=== PATIENT | female | born 1975 | race Caucasian/White ===

== ENCOUNTER 2021-03-30 09:00 | Emergency (ER) | payer OTHER ==
[2021-03-30 09:53] LABS: Absolute Lymphocytes (CBC) 1.7 K/uL (0.7-4.9); Basophils % 0.1 % (0-1.3); Hematocrit 42.2 % (36.0-45.0); Lymphocytes % 13.8 % (15.3-44.8); RBC Red Blood Cell Count 4.63 M/uL (3.86-4.86)
[2021-03-30] MEDS ORDERED: ONDANSETRON 4 MG/2 ML VIAL ONE (09:53)
[2021-03-30] MEDS ORDERED: MORPHINE 4 MG/ML SYR ONE ×2 (09:53→13:25)
[2021-03-30] MEDS ORDERED: NA CHLORIDE 0.9% 0 ML ONE (09:53)
[2021-03-30 11:19] LABS: SARS-COV-2 RT PCR NEGATIVE (NEGATIVE)
[2021-03-30 11:25] LABS: Albumin 3.6 g/dL (3.4-5.0); Bilirubin Direct 0.1 mg/dL (0-0.2); Bilirubin Total 0.5 mg/dL (0.2-1.0); Potassium 3.8 mmol/L (3.5-5.1); Protein, Total 6.9 g/dL (6.4-8.2)
--- NOTE | 2021-03-30 12:06 | RAD REPORT ---
EXAM DESCRIPTION: CT - Abdomen Pelvis W Contrast - 03/30/2021 11:41 am CLINICAL HISTORY: Abdominal pain COMPARISON: none. TECHNIQUE: Computed axial tomography of the abdomen pelvis was obtained. 100 cc Isovue-300 was admin istered intravenously. Oral contrast was not requested which limits evaluation of bowel. All CT scans are performed using dose optimization technique as appropriate and may include automated exposure control or mA/KV adjustment according to patient size. FINDINGS: The liver, spleen, pancreas, adrenal and kidneys appear unremarkable. Marked thickening of the wall of the descending colon with stranding within adjacent fat compatible w ith colitis. Pneumatosis intestinalis is not noted. . A small amount of ascites IMPRESSION: Marked left-sided colitis
[2021-03-30] MEDS ORDERED: CIPROFLOXACIN 400mg IV 0 MG/0 ML BAG IV ONE (12:24)
[2021-03-30] MEDS ORDERED: METRONIDAZOLE 500mg IVPB 500 MG/100 ML BAG IV ONE (12:24)
[2021-03-30] MEDS ORDERED: CIPROFLOXACIN HCL 500 MG TAB ONE (12:25)
--- NOTE | 2021-03-30 12:35 | EDPHYS ---
Physician Documentation [facility] Name: Melissa Jimenes Age: 46 yrs Sex: Female : 1975 Arrival Date: 03/30/2021 Time: 09:04 Bed 10 Private MD: ED Physician Joe Baldwin HPI: 03/30 09:39 This 46 yrs old Female presents to ER via Ambulatory with complaints of Abdominal Pain. pm1 09:39 The patient presents with abdominal pain in the left lower quadrant, Suprapubic area. pm1 Onset: The symptoms/episode began/occurred yesterday. The symptoms do not radiate. Associated signs and symptoms: Pertinent positives: diarrhea, Pertinent negatives: nausea and vomiting. The symptoms are described as sharp. Modifying factors: The symptoms are alleviated by nothing, the symptoms are aggravated by nothing. Severity of pain: in the emergency department the pain is actually worse. The patient has not experienced similar symptoms in the past. The patient has not recently seen a physician. Historical: - Allergies: 09:32 No Known Allergies; aa5 - Home Meds: 09:32 None [Active]; aa5 - PMHx: 09:32 None; aa5 - PSHx: 09:32 hysterectomy; aa5 - Immunization history:: Client reports receiving the 2nd dose of the Covid vaccine. - Social history:: Smoking status: Patient reports the use of cigarette tobacco products, smokes one-half pack cigarettes per day. ROS: 09:39 Constitutional: Negative for fever, chills, and weight loss, Cardiovascular: Negative pm1 for chest pain, palpitations, and edema, Respiratory: Negative for shortness of breath, cough, wheezing, and pleuritic chest pain. 09:39 : Negative for injury, bleeding, discharge, and swelling, MS/Extremity: Negative for injury and deformity, Skin: Negative for injury, rash, and discoloration, Neuro: Negative for headache, weakness, numbness, tingling, and seizure. 09:39 Abdomen/GI: Positive for abdominal pain, diarrhea, Negative for nausea and vomiting, constipation. 09:39 All other systems are negative. Exam: 09:39 Constitutional: This is a well developed, well nourished patient who is awake, alert, pm1 and in no acute distress. Head/Face: Normocephalic, atraumatic. 09:39 Back: No spinal tenderness. No costovertebral tenderness. Full range of motion. Skin: Warm, dry with normal turgor. Normal color with no rashes, no lesions, and no evidence of cellulitis. MS/ Extremity: Pulses equal, no cyanosis. Neurovascular intact. Full, normal range of motion. 09:39 Cardiovascular: Exam negative for acute changes, Rate: normal, Rhythm: regular, Pulses: no pulse deficits are appreciated, Heart sounds: normal. 09:39 Respiratory: Exam negative for acute changes, respiratory distress, shortness of breath, Breath sounds: are clear throughout. 09:39 Abdomen/GI: Inspection: abdomen appears normal, Palpation: soft, in all quadrants, mild abdominal tenderness, in the suprapubic area and left lower quadrant. 09:39 Neuro: Exam negative for acute changes, Orientation: is normal, Mentation: is normal, Motor: is normal, moves all fours. Vital Signs: 09:30 BP 118 / 77; Pulse 75; Resp 16; Pulse Ox 100% on R/A; kj1 09:34 BP 121 / 79; Pulse 64; Resp 16 S; Temp 98.0(TE); Pulse Ox 100% on R/A; Weight 68.04 kg aa5 (R); Height 5 ft. 6 in. (167.64 cm) (R); 11:39 Pulse 65; Resp 15; Pulse Ox 99% on R/A; ss 09:34 Body Mass Index 24.21 (68.04 kg, 167.64 cm) aa5 MDM: 09:39 Patient medically screened. pm1 12:30 Data reviewed: vital signs. Data interpreted: Pulse oximetry: on room air is 99 %. pm1 Interpretation: normal. 12:30 Counseling: I had a detailed discussion with the patient and/or guardian regarding: the pm1 historical points, exam findings, and any diagnostic results supporting the discharge/admit diagnosis, lab results, radiology results. 12:30 ED course: Patient offered admission. Patient would like to go home. She is not pm1 vomiting and would be able to take her medications. Educated on return precautions for reevaluation and admission. 03/30 09:36 Order name: Basic Metabolic Panel; Complete Time: 11:39 iw 03/30 09:36 Order name: CBC with Diff; Complete Time: 10:50 iw 03/30 09:36 Order name: Hepatic Function; Complete Time: 11:39 iw 03/30 09:36 Order name: Lipase; Complete Time: 11:39 iw 03/30 09:56 Order name: COVID-19/FLU A+B (Document "Date of Onset" if Symptomatic); Complete Time: pm1 11:20 03/30 11:17 Order name: Urine Microscopic Only pm1 03/30 09:54 Order name: CT Abd/Pelvis - IV Contrast Only; Complete Time: 12:13 pm1 03/30 12:45 Order name: Urine Dipstick-Ancillary; Complete Time: 12:48 EDMS 03/30 09:36 Order name: IV Saline Lock; Complete Time: 10:02 iw 03/30 09:36 Order name: Labs collected and sent; Complete Time: 10:02 iw 03/30 11:17 Order name: Urine Dipstick-Ancillary (obtain specimen); Complete Time: 12:48 pm1 Administered Medications: 10:01 Drug: NS 0.9% 1000 ml Route: IV; Rate: 1000 ml; Site: left antecubital; iw 11:00 Follow up: IV Status: Completed infusion iw 10:01 Drug: morphine 4 mg Route: IVP; Site: left antecubital; iw 10:15 Follow up: Response: No adverse reaction iw 10:01 Drug: Zofran (Ondansetron) 4 mg Route: IVP; Site: left antecubital; iw 10:15 Follow up: Response: No adverse reaction iw 12:46 Drug: Flagyl (metroNIDAZOLE) 500 mg Volume: 100 ml; Route: IVPB; Rate: 200 ml/hr; ld1 Infused Over: 30 mins; Site: left antecubital; 13:32 Follow up: Response: No adverse reaction; IV Status: Completed infusion; IV Intake: ld1 100ml 12:47 Drug: Cipro (ciprofloxacin) 500 mg Route: PO; ld1 13:32 Follow up: Response: No adverse reaction ld1 12:52 Not Given (Patient Refused): NS 0.9% 1000 ml IV at 1000 ml once ld1 13:32 Drug: morphine 4 mg Route: IVP; Site: left antecubital; ld1 13:32 Follow up: Response: No adverse reaction ld1 13:32 Drug: Bentyl (dicyclomine) 20 mg Route: PO; ld1 13:32 Follow up: Response: No adverse reaction ld1 Disposition: 14:52 Co-signature as Attending Physician, Joe Baldwin MD I agree with the assessment and kdr plan of care. Disposition Summary: 03/30/21 12:34 Discharge Ordered Location: Home pm1 Problem: new pm1 Symptoms: have improved pm1 Condition: Stable pm1 Diagnosis - Left sided colitis pm1 Followup: pm1 - With: Emergency Department - When: As needed - Reason: Worsening of condition Followup: pm1 - With: Private Physician - When: 2 - 3 days - Reason: Recheck today's complaints, Continuance of care, Re-evaluation by your physician Discharge Instructions: - Discharge Summary Sheet pm1 - Colitis pm1 Forms: - Medication Reconciliation Form pm1 - Thank You Letter pm1 - Antibiotic Education pm1 - Prescription Opioid Use pm1 Prescriptions: - Flagyl 500 mg Oral Tablet - take 1 tablet by ORAL route every 8 hours for 10 days; 30 tablet; Refills: 0, pm1 Product Selection Permitted - Cipro 500 mg Oral Tablet - take 1 tablet by ORAL route every 12 hours for 10 days; 20 tablet; Refills: 0, pm1 Product Selection Permitted - dicyclomine 20 mg Oral Tablet - take 1 tablet by ORAL route every 6 hours As needed; 20 tablet; Refills: 0, pm1 Product Selection Permitted Signatures: Dispatcher [employer] Joe Yoo MD MD kdr Mari Rivera RN RN iw Sapphire Christie RN RN aa5 Adebayo Elias NP SENIOR PRODUCT ANALYST pm1 Lesa Willis RN RN ld1
--- NOTE | 2021-03-30 12:35 | ER ---
Nurse's Notes [facility] Name: Melissa Jimenes Age: 46 yrs Sex: Female : 1975 Arrival Date: 03/30/2021 Time: 09:04 Bed 10 Private MD: Diagnosis: Left sided colitis Presentation: 03/30 09:34 Chief complaint: Patient states: lower abd cramping and diarrhea since last night. aa5 Denies vomiting. Coronavirus screen: diarrhea. Ebola Screen: No symptoms or risks identified at this time. Initial Sepsis Screen: Does the patient meet any 2 criteria? No. Patient's initial sepsis screen is negative. Does the patient have a suspected source of infection? No. Patient's initial sepsis screen is negative. Risk Assessment: Do you want to hurt yourself or someone else? Patient reports no desire to harm self or others. Onset of symptoms was March 2021. 09:34 Method Of Arrival: Ambulatory aa5 09:34 Acuity: DANIEL 3 aa5 Historical: - Allergies: 09:32 No Known Allergies; aa5 - Home Meds: 09:32 None [Active]; aa5 - PMHx: 09:32 None; aa5 - PSHx: 09:32 hysterectomy; aa5 - Immunization history:: Client reports receiving the 2nd dose of the Covid vaccine. - Social history:: Smoking status: Patient reports the use of cigarette tobacco products, smokes one-half pack cigarettes per day. Screenin:34 Abuse screen: Denies threats or abuse. Denies injuries from another. Nutritional iw screening: No deficits noted. Tuberculosis screening: No symptoms or risk factors identified. Fall Risk None identified. IV access (20 points). Assessment: 10:33 General: Appears in no apparent distress. Behavior is calm, cooperative. Pain: iw Complains of pain in abdomen. Neuro: Level of Consciousness is awake, alert, obeys commands, Oriented to person, place, time, situation, Moves all extremities. Weakness. Cardiovascular: Patient's skin is warm and dry. Respiratory: Respiratory effort is even, unlabored, Respiratory pattern is regular, symmetrical. GI: Bowel sounds present X 4 quads. Abd is soft X 4 quads Reports lower abdominal pain, upper abdominal pain. Derm: Skin is intact, is healthy with good turgor. Musculoskeletal: Range of motion: intact in all extremities. Vital Signs: 09:30 BP 118 / 77; Pulse 75; Resp 16; Pulse Ox 100% on R/A; kj1 09:34 BP 121 / 79; Pulse 64; Resp 16 S; Temp 98.0(TE); Pulse Ox 100% on R/A; Weight 68.04 kg aa5 (R); Height 5 ft. 6 in. (167.64 cm) (R); 11:39 Pulse 65; Resp 15; Pulse Ox 99% on R/A; ss 09:34 Body Mass Index 24.21 (68.04 kg, 167.64 cm) aa5 ED Course: 09:04 Patient arrived in ED. rg4 09:32 Arm band placed on. aa5 09:35 Triage completed. aa5 09:36 Adebayo Elias NP is PHCP. pm1 09:36 Joe Baldwin MD is Attending Physician. pm1 09:40 Initial lab(s) drawn, by me, sent to lab. Inserted saline lock: 22 gauge in left kj1 antecubital area, using aseptic technique. Blood collected. 09:52 Mari Rivera, RN is Primary Nurse. iw 10:59 CT Abd/Pelvis - IV Contrast Only In Process Unspecified. EDMS 12:46 Urine Dipstick-Ancillary Sent. ld1 12:48 Urine Microscopic Only Sent. ld1 13:32 No provider procedures requiring assistance completed. IV discontinued, intact, ld1 bleeding controlled, No redness/swelling at site. Administered Medications: 10:01 Drug: NS 0.9% 1000 ml Route: IV; Rate: 1000 ml; Site: left antecubital; iw 11:00 Follow up: IV Status: Completed infusion iw 10:01 Drug: morphine 4 mg Route: IVP; Site: left antecubital; iw 10:15 Follow up: Response: No adverse reaction iw 10:01 Drug: Zofran (Ondansetron) 4 mg Route: IVP; Site: left antecubital; iw 10:15 Follow up: Response: No adverse reaction iw 12:46 Drug: Flagyl (metroNIDAZOLE) 500 mg Volume: 100 ml; Route: IVPB; Rate: 200 ml/hr; ld1 Infused Over: 30 mins; Site: left antecubital; 13:32 Follow up: Response: No adverse reaction; IV Status: Completed infusion; IV Intake: ld1 100ml 12:47 Drug: Cipro (ciprofloxacin) 500 mg Route: PO; ld1 13:32 Follow up: Response: No adverse reaction ld1 12:52 Not Given (Patient Refused): NS 0.9% 1000 ml IV at 1000 ml once ld1 13:32 Drug: morphine 4 mg Route: IVP; Site: left antecubital; ld1 13:32 Follow up: Response: No adverse reaction ld1 13:32 Drug: Bentyl (dicyclomine) 20 mg Route: PO; ld1 13:32 Follow up: Response: No adverse reaction ld1 Intake: 13:32 IV: 100ml; Total: 100ml. ld1 Outcome: 12:34 Discharge ordered by MD. pm1 13:33 Discharged to home ambulatory. ld1 13:33 Condition: stable 13:33 Discharge instructions given to patient, Instructed on discharge instructions, follow up and referral plans. medication usage, Demonstrated understanding of instructions, follow-up care, medications, Prescriptions given X 2. 13:33 Patient left the ED. ld1 Signatures: Dispatcher [employer] EDMS Mari Rivera, RN Sapphire Pathak RN RN aa5 Mariposa Stanley RN RN ss Adebayo Elias, ANTOENTTE INSTRUMENT ASSEMBLY SUPERVISOR pm1 Miladis Noonan4 Makenna Mohr1 Lesa Willis RN RN ld1
[2021-03-30 12:46] LABS: Urine Blood Negative (Negative); Urine Glucose Negative (Negative); Urine Protein Negative (Negative); Urine Specific Gravity <=1.005 (1.005-1.030)
[2021-03-30] MEDS ORDERED: NA CHLORIDE 0.9% 1,000 ML ONE (12:50)
[2021-03-30] MEDS ORDERED: DICYCLOMINE HCL 10 MG CAP ONE (13:26)
[2021-03-30 13:43] VITALS: BP 121/79; TEMP 98
[2021-03-30 13:43] LABS: Urine Bacteria ND /HPF (<20); Urine RBC <5 /HPF (NONE SEEN)
[2021-03-30 13:44] VITALS: O2SAT 99
== END 2021-03-30 13:33 | disposition home or self-care (01) ==
LOC: ER 09:00
DX: K51.50 Left sided colitis without complications (principal); F17.210 Nicotine dependence, cigarettes, uncomplicated
CPT/HCPCS: 96365; 96361; 85025; 80048; 36415; 80076; 83690; 0240U; 74177; 96375; 99284; Q9967; J7030; J2405; 81003; 81015; J0744